=== PATIENT | male | born 1955 | race Two or more races ===

== ENCOUNTER 2023-04-21 10:07 | Inpatient (IN) | payer BC, OTHER ==
[~2023-04-21] VITALS: Ht 180.3 cm; Wt 67.7 kg
[2023-04-21] MEDS ORDERED: methylPREDNISolone SOD SUCC 125 MG/2 ML VL IV ONE (13:15)
[2023-04-21] MEDS ORDERED: ALBUTEROL MEDNEB 2.5 mg/3ml NEB NEB ONE (13:15)
[2023-04-21] MEDS ORDERED: IPRATROPIUM BROM 0.5 MG/2.5ML INH SOL NEB ONE (13:15)
[2023-04-21 13:17] LABS: Eosinophils # (auto) 0.1 10 ^3/uL (0-0.8); Hemoglobin 9.5 g/dL (13.5-17.5); Lymphocytes # (auto) 0.7 10 ^3/uL (0.4-5.4); Mean Corpuscular Volume 70.1 fL (80.0-100.0); Neutrophils # (auto) 2.1 10 ^3/uL (1.6-8.6); White Blood Cell 3.4 10^3/uL (4.4-10.8)
[2023-04-21 13:20] LABS: Basophils # (auto) 0.1 10 ^3/uL (0-0.2); Basophils % (auto) 1.6 % (0.0-2.0); Hematocrit 32.1 % (41.0-53.0); Lymphocytes % (auto) 20.2 % (10.0-50.0); Mean Corpuscular Hemoglobin 20.7 pg (28.0-32.0); Mean Corpuscular Hgb Conc. 29.6 g/dL (32.0-36.0); Monocytes # (auto) 0.4 10 ^3/uL (0-1.3); Monocytes % (auto) 12.8 % (0.0-12.0); Neutrophils % (auto) 61.4 % (37.0-80.0); Nucleated Red Blood Cells % 0.2 %; Red Blood Cells 4.58 10^6/uL (4.5-5.90); Red Cell Distribution Width 17.6 % (11.8-14.3)
[2023-04-21 13:26] LABS: Alanine Aminotransferase 22 U/L (7-40); Albumin 4.8 g/dL (3.2-4.8); Alkaline Phosphatase 99 U/L (46-116); Anion Gap 11 (5-15); Aspartate Aminotransferase 19 U/L (13-40); BUN/Creatinine Ratio 5.9 (10.0-20.0); Blood Urea Nitrogen 5 mg/dL (9-23); Calcium 9.8 mg/dL (8.5-10.1); Carbon Dioxide 22 mmol/L (20-30); Chloride 110 mmol/L (98-107); Glucose 96 mg/dL (74-106); Potassium 3.9 mmol/L (3.5-5.1); Sodium 143 mmol/L (136-145)
[2023-04-21 13:27] LABS: Bilirubin, Total 0.3 mg/dL (0.2-1.0); Total Protein 7.1 g/dL (5.7-8.2)
[2023-04-21 13:28] LABS: Urine Bacteria NONE SEEN /hpf (None Seen); Urine Blood Negative /uL (Negative); Urine Clarity Clear (Clear); Urine Color Colorless (Yellow); Urine Protein, UAD Negative (Negative); Urine Specific Gravity 1.005 (1.001-1.035); Urine Urobilinogen Normal (Negative); Urine WBC <1 /hpf (0 - 3)
[2023-04-21] MEDS ORDERED: ACETAMINOPHEN 325 MG TAB PO PRN (15:00)
[2023-04-21] MEDS ORDERED: guaiFENesin 200 MG/10 ML UD PO PRN (15:00)
[2023-04-21] MEDS ORDERED: ONDANSETRON HCL 4 MG/2 ML VIAL IV PRN (15:00)
[2023-04-21] MEDS ORDERED: DOCUSATE SOD 100 MG CAP PO PRN (15:00)
[2023-04-21] MEDS ORDERED: SUCR1TAB PO (15:08)
[2023-04-21] MEDS ORDERED: ATOR-47 PO (15:08)
[2023-04-21] MEDS ORDERED: METO1TAB9 PO (15:08)
[2023-04-21] MEDS ORDERED: AMIT100T75 PO (15:08)
[2023-04-21] MEDS ORDERED: GABA-1250 PO (15:08)
[2023-04-21] MEDS ORDERED: CLOP75TA70 PO (15:08)
[2023-04-21] MEDS ORDERED: TIZA-326 PO (15:08)
[2023-04-21] MEDS ORDERED: PANT40T PO (15:08)
[2023-04-21] MEDS ORDERED: HYDROcodone-ACET 5/325MG TAB PO PRN (15:15)
[2023-04-21] MEDS ORDERED: SUCRALFATE 1 GM TAB PO PRN (15:15)
[2023-04-21] MEDS ORDERED: AMITRIPTYLINE HCL 25 MG TAB PO PRN (15:15)
[2023-04-21] MEDS ORDERED: Tizanidine Hydrochloride (Tizanidine Hcl) 1 TAB PO PRN (15:15)
[2023-04-21] MEDS ORDERED: DEXTROSE (50%) 50ML SYRG IV PRN (15:30)
[2023-04-21 15:50] VITALS: PULSE 71; RESP 20; O2SAT 99
[2023-04-21] MEDS: HYDROcodone-ACET 10/325MG TAB PO PRN (18:55)
[2023-04-21] MEDS: IPRATROPIUM BROM 0.5 MG/2.5ML INH SOL NEB SCH (19:04)
[2023-04-21] MEDS: ALBUTEROL MEDNEB 2.5 mg/3ml NEB NEB SCH (19:04)
[2023-04-21 19:09] VITALS: PULSE 79; RESP 18; O2SAT 100
[2023-04-21 19:15] VITALS: PULSE 79; RESP 18; O2SAT 99
[2023-04-21 21:37] LABS: Rapid Influenza A Negative (Negative); Rapid Influenza B Negative (Negative)
[2023-04-21 21:38] LABS: COVID19 ANTIGEN SOFIA FIA NEGATIVE (NEGATIVE)
[2023-04-21] MEDS: ACCU-CHEK COMFORT CURVE STRIP VI SCH (21:55)
[2023-04-21] MEDS: GABAPENTIN 300 MG CAP PO SCH (21:56)
[2023-04-21] MEDS: PANTOPRAZOLE 40 MG TAB PO SCH (21:56)
[2023-04-21] MEDS: methylPREDNISolone SOD SUCC 40 MG/ML VL IV SCH (21:58)
[2023-04-21 22:00] VITALS: BP 144/67; PULSE 69; RESP 18; TEMP 98.4; O2SAT 97
[2023-04-21] MEDS: InsuLIN REG 1unit/0.01ml Soln (100units/ml) SC SCH (22:00)
[2023-04-22] VITALS (13 sets, daily range): BP systolic 137–144; BP diastolic 72–88; PULSE 68–95; RESP 18–20; TEMP 98–98.5; O2SAT 98–100
[2023-04-22] MEDS: HYDROcodone-ACET 10/325MG TAB PO PRN ×3 (06:08→21:42)
[2023-04-22] MEDS: ACCU-CHEK COMFORT CURVE STRIP VI SCH ×4 (06:09→21:44)
[2023-04-22] MEDS: GABAPENTIN 300 MG CAP PO SCH ×3 (06:09→21:42)
[2023-04-22] MEDS: InsuLIN REG 1unit/0.01ml Soln (100units/ml) SC SCH ×4 (06:12→21:44)
[2023-04-22] MEDS: IPRATROPIUM BROM 0.5 MG/2.5ML INH SOL NEB SCH ×3 (06:46→19:16)
[2023-04-22] MEDS: ALBUTEROL MEDNEB 2.5 mg/3ml NEB NEB SCH ×3 (06:46→19:16)
[2023-04-22 06:56] LABS: Alanine Aminotransferase 16 U/L (7-40); Albumin 4.4 g/dL (3.2-4.8); Alkaline Phosphatase 85 U/L (46-116); Anion Gap 8 (5-15); Aspartate Aminotransferase 10 U/L (13-40); BUN/Creatinine Ratio 10.5 (10.0-20.0); Blood Urea Nitrogen 9 mg/dL (9-23); Calcium 9.3 mg/dL (8.5-10.1); Carbon Dioxide 22 mmol/L (20-30); Chloride 108 mmol/L (98-107); Glucose 143 mg/dL (74-106); Sodium 138 mmol/L (136-145)
[2023-04-22 06:57] LABS: Bilirubin, Total 0.3 mg/dL (0.2-1.0); Total Protein 6.7 g/dL (5.7-8.2)
[2023-04-22 07:16] LABS: Basophils # (auto) 0 10 ^3/uL (0-0.2); Eosinophils # (auto) 0 10 ^3/uL (0-0.8); Monocytes # (auto) 0.2 10 ^3/uL (0-1.3); Neutrophils # (auto) 2.5 10 ^3/uL (1.6-8.6); White Blood Cell 3.1 10^3/uL (4.4-10.8)
[2023-04-22 07:19] LABS: Hematocrit 26.8 % (41.0-53.0); Hemoglobin 8.1 g/dL (13.5-17.5); Lymphocytes # (auto) 0.3 10 ^3/uL (0.4-5.4); Mean Corpuscular Hemoglobin 20.6 pg (28.0-32.0); Mean Corpuscular Hgb Conc. 30.1 g/dL (32.0-36.0); Mean Corpuscular Volume 68.4 fL (80.0-100.0); Monocytes % (auto) 6.7 % (0.0-12.0); Neutrophils % (auto) 82.3 % (37.0-80.0); Nucleated Red Blood Cells % 0.2 %; Red Blood Cells 3.91 10^6/uL (4.5-5.90); Red Cell Distribution Width 17.6 % (11.8-14.3)
[2023-04-22] MEDS: methylPREDNISolone SOD SUCC 40 MG/ML VL IV SCH ×2 (08:41→21:41)
[2023-04-22] MEDS: ATORVASTATIN 20 MG TAB PO SCH (08:41)
[2023-04-22] MEDS: PANTOPRAZOLE 40 MG TAB PO SCH ×2 (08:42→21:42)
[2023-04-22] MEDS: METOPROLOL SUCCINATE XL 50 MG TAB PO SCH (08:42)
[2023-04-22] MEDS: CLOPIDOGREL BISULFATE 75 MG TAB PO SCH (08:42)
[2023-04-23] VITALS (9 sets, daily range): BP systolic 119–148; BP diastolic 58–74; PULSE 67–90; RESP 16–18; TEMP 97.7–98.1; O2SAT 97–100
[2023-04-23] MEDS: GABAPENTIN 300 MG CAP PO SCH (05:34)
[2023-04-23] MEDS: ACCU-CHEK COMFORT CURVE STRIP VI SCH ×2 (06:08→11:30)
[2023-04-23] MEDS: InsuLIN REG 1unit/0.01ml Soln (100units/ml) SC SCH ×2 (06:09→11:30)
[2023-04-23] MEDS: IPRATROPIUM BROM 0.5 MG/2.5ML INH SOL NEB SCH ×2 (07:33→11:45)
[2023-04-23] MEDS: ALBUTEROL MEDNEB 2.5 mg/3ml NEB NEB SCH ×2 (07:33→11:45)
[2023-04-23 08:14] LABS: Basophils # (auto) 0 10 ^3/uL (0-0.2); Eosinophils # (auto) 0 10 ^3/uL (0-0.8); Hemoglobin 7.7 g/dL (13.5-17.5); Nucleated Red Blood Cells % 0.1 %
[2023-04-23 08:18] LABS: Basophils % (auto) 0.1 % (0.0-2.0); Hematocrit 25.8 % (41.0-53.0); Lymphocytes # (auto) 0.5 10 ^3/uL (0.4-5.4); Lymphocytes % (auto) 6.2 % (10.0-50.0); Mean Corpuscular Hemoglobin 20.2 pg (28.0-32.0); Mean Corpuscular Hgb Conc. 29.8 g/dL (32.0-36.0); Mean Corpuscular Volume 67.9 fL (80.0-100.0); Monocytes # (auto) 0.6 10 ^3/uL (0-1.3); Monocytes % (auto) 7.2 % (0.0-12.0); Neutrophils # (auto) 6.8 10 ^3/uL (1.6-8.6); Neutrophils % (auto) 86.5 % (37.0-80.0); Red Blood Cells 3.81 10^6/uL (4.5-5.90); Red Cell Distribution Width 17.4 % (11.8-14.3); White Blood Cell 7.9 10^3/uL (4.4-10.8)
[2023-04-23 08:21] LABS: Chloride 108 mmol/L (98-107); Potassium 4.4 mmol/L (3.5-5.1); Sodium 140 mmol/L (136-145)
[2023-04-23 08:22] LABS: Anion Gap 7 (5-15); Calcium 9.4 mg/dL (8.5-10.1); Carbon Dioxide 25 mmol/L (20-30)
[2023-04-23 08:27] LABS: Blood Urea Nitrogen 16 mg/dL (9-23); Glucose 110 mg/dL (74-106)
[2023-04-23] MEDS ORDERED: PRED20TA2 PO (09:32)
[2023-04-23] MEDS ORDERED: UMEC1AER IN (09:36)
[2023-04-23] MEDS ORDERED: ALBUAER3 IN (09:38)
[2023-04-23] MEDS: CLOPIDOGREL BISULFATE 75 MG TAB PO SCH (10:06)
[2023-04-23] MEDS: PANTOPRAZOLE 40 MG TAB PO SCH (10:06)
[2023-04-23] MEDS: ATORVASTATIN 20 MG TAB PO SCH (10:06)
[2023-04-23] MEDS: methylPREDNISolone SOD SUCC 40 MG/ML VL IV SCH (10:07)
[2023-04-23] MEDS: METOPROLOL SUCCINATE XL 50 MG TAB PO SCH (10:09)
== END 2023-04-23 14:30 | disposition home or self-care (01) | DRG 192 ==
LOC: ER 10:07 → EDBD 10:07 → OVERFLOW 14:54 → CENTRAL 17:57
PROVIDERS: ADMIT Nurse Practitioner Family; ATTEND Internal Medicine Pulmonary Disease
DX: J44.1 Chronic obstructive pulmonary disease with (acute) exacerbation (principal); I25.10 Atherosclerotic heart disease of native coronary artery without angina pectoris; I10 Essential (primary) hypertension; E11.9 Type 2 diabetes mellitus without complications; F17.210 Nicotine dependence, cigarettes, uncomplicated; G89.29 Other chronic pain; J43.9 Emphysema, unspecified; M54.50 Low back pain, unspecified; Z20.822 Contact with and (suspected) exposure to COVID-19; Z85.46 Personal history of malignant neoplasm of prostate; Z98.61 Coronary angioplasty status
CPT/HCPCS: 36415; 71045; 80048; 80053; 81001; 82962; 84484; 85025; 87426; 87804; 93005; 93306; 94640; 96374; G0378; J1642; J1815